=== PATIENT | female | born 1960 | race Caucasian/White ===

== ENCOUNTER 2019-07-09 02:42 | Inpatient (IN) | payer BC ==
[2019-07-09] VITALS (19 sets, daily range): BP systolic 90–115; BP diastolic 70–93; Ht 165.1 cm; Wt 53.5 kg
[~2019-07-09] VITALS: Ht 165.1 cm; Wt 53.5 kg
[2019-07-09] MEDS ORDERED: ZOLOFT50 MG PO (02:52)
[2019-07-09] MEDS ORDERED: VASOTEC20 MG PO (02:52)
[2019-07-09] MEDS ORDERED: ZOLOFT25 MG PO (02:52)
[2019-07-09] MEDS ORDERED: SYNTHROID50 MCG PO (02:53)
[2019-07-09 03:22] LABS: BASOPHILS 0.1 % (0-2); EOSINOPHILS 0.1 % (0-7); HEMOGLOBIN 11.7 g/dL (12-16); IMMATURE GRANULOCYTES 0.2 % (0-5); LYMPHOCYTES 15.7 % (15-50); MCH 34.3 pg (26.0-34.0); MCHC 33.4 g/dL (31.0-37.0); MCV 102.6 fL (80.0-100.0); MEAN PLATELET VOLUME 9.7 fL (7.4-10.4); MONOCYTES 11.9 % (2-11); PLATELET COUNT 67 10x3/uL (130-400); RBC 3.41 10x6/uL (4.00-5.40); RDW 12.1 % (11.5-14.5); WBC 8.7 10x3/uL (4.8-10.8)
[2019-07-09 03:35] LABS: APPEARANCE CLEAR (CLEAR); BILIRUBIN NEGATIVE (NEGATIVE); COLOR YELLOW (YELLOW); GLUCOSE 100 mg/dL (NEGATIVE); KETONE SMALL mg/dL (NEGATIVE); NITRITE NEGATIVE (NEGATIVE); PROTEIN NEGATIVE (NEGATIVE); SPECIFIC GRAVITY 1.015 (1.005-1.020); UROBILINOGEN NORMAL (NORMAL)
[2019-07-09 03:38] LABS: BACTERIA FEW /hpf (NEGATIVE); EPITHELIAL CELLS 0-5 /hpf (0-5); RED CELLS - URINE 0-5 /hpf (0-5); WHITE CELLS - URINE 0-5 /hpf (NEGATIVE)
[2019-07-09 03:48] LABS: APTT 29.2 SECONDS (22.8-39.4); INR 1.19 (0.85-1.17); PROTIME 14.6 SECONDS (11.6-15.0)
[2019-07-09 03:50] LABS: UDS - AMPHET NEGATIVE QUAL (NEGATIVE); UDS - BARB NEGATIVE QUAL (NEGATIVE); UDS - BENZO NEGATIVE QUAL (NEGATIVE); UDS - COCAINE NEGATIVE QUAL (NEGATIVE); UDS - OPIATE NEGATIVE QUAL (NEGATIVE); UDS - PCP NEGATIVE QUAL (NEGATIVE); UDS - THC NEGATIVE QUAL (NEGATIVE)
[2019-07-09 04:01] LABS: CALC OSMOLALITY 272 mosm/kg (275-300); CALCIUM 8.6 mg/dL (8.5-10.1); CARBON DIOXIDE 24.7 mmol/L (21.0-32.0); CHLORIDE - SERUM 99 mmol/L (98-107); CREATININE - SERUM 0.9 mg/dL (0.6-1.3); GLUCOSE 90 mg/dL (74-106); POTASSIUM - SERUM 3.7 mmol/L (3.5-5.1); SODIUM 136 mmol/L (136-145); UREA NITROGEN 15 mg/dL (7-18); eGFR NON AFRICAN AMERICAN 69 mL/min (90-120)
[2019-07-09 04:22] LABS: ALBUMIN 3.4 g/dL (3.4-5.0); ALKALINE PHOSPHATASE 180 U/L (46-116); ALT (SGPT) 60 U/L (10-68); BILIRUBIN - TOTAL 1.25 mg/dL (0.2-1.3); CKMB 16.9 U/L (0.0-3.6); CREATINE KINASE 583 UL (21-215); MAGNESIUM - SERUM 1.6 mg/dL (1.8-2.4); PROTEIN - SERUM 7.8 g/dL (6.4-8.2)
--- NOTE | 2019-07-09 04:42 | NUR ---
PT RECEIVED FROM ER. CAMEJO AT BEDSIDE. VSS WILL CONTINUE TO MONITOR
--- NOTE | 2019-07-09 07:00 | NUR ---
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
--- NOTE | 2019-07-09 09:15 | NUR ---
KAREN MACHADO APN HERE FOR EVAL, ECHO ORDERED
[2019-07-09 09:39] LABS: CKMB 13.1 U/L (0.0-3.6); CREATINE KINASE 541 UL (21-215)
[2019-07-09 09:45] LABS: TROPONIN-I 3.667 ng/mL (0.000-0.060)
--- NOTE | 2019-07-09 09:57 | NUR ---
TC IN UNIT FOR PENDING ECHO
--- NOTE | 2019-07-09 11:00 | NUR ---
REASSESSMENT COMPLETED, RESTING WITH NO SIGNS OF DISTRESS, VSS, DENIES PAIN, ASSESSMENT COMPLETED PER FLOWSHEET, SELF REPOSITIONS, AWAITING TO SEE DR HER FOR POC, CALL LIGHT IN REACH, NO OTHER NEEDS AT THIS TIME
--- NOTE | 2019-07-09 12:00 | NUR ---
AND SON AT BEDSIDE, STATUS UPDATED, AWATING TO SPEAK WITH MD
--- NOTE | 2019-07-09 13:10 | NUR ---
DR LONG AT BEDSIDE, COUNSELED WITH FAMILY RE: POC
--- NOTE | 2019-07-09 15:00 | NUR ---
RESTING WITH NO SIGNS OF DOSTRESS, VSS, DENIES PAIN, HUNGRY AND WANTS TO EAT, DISCUSSED NPO ORDER AND PC TO DR LONG TO CLARIFY DIET ORDER, NEW ORDER GIVEN FOR REG DIET
--- NOTE | 2019-07-09 16:00 | NUR ---
CALLED TO ROOM, CLEAR LIQUIDS TO BEDSIDE, SPOKE WITH PATIENT RE: HER DRINKING PATTERN, STATES SHE DRINKS 3 OUNCES A DAY, SON AT BEDSIDE AND EXPLAINED THAT HIS FATHER WAS GIVING HIS MOM 3 OUNCES A DAY TO HELP HER TO QUIT DRINKING, BUT HE FEELS LIKE SHE WAS GETTING LIQUOR FROM SOMEONE ELSE, SHE DOES ADMIT TO DRINKING THE 3 OZ ON MOST DAYS
[2019-07-09 16:29] LABS: CKMB 9.4 U/L (0.0-3.6); CREATINE KINASE 450 UL (21-215)
[2019-07-09 16:38] LABS: TROPONIN-I 2.251 ng/mL (0.000-0.060)
--- NOTE | 2019-07-09 16:45 | NUR ---
CALLED TO ROOM, NEEDS TO URINATE, OOB TO BSC WITH ASSIST, UNABLE TO VOID BACK TO BED WITH ASSIST, REPOSITIONED WITH MINIMAL ASSIST
--- NOTE | 2019-07-09 18:36 | NUR ---
AGITATED, CRAWLING OOB, SHAKING, NOT EASILY DIRECTED, 1M ATIVAN GIVEN PER ORDER
--- NOTE | 2019-07-09 19:00 | NUR ---
REPORT RECEIVED. PT DISORIENTED TO PLACE, TIME, AND SITUATION. PT CONTINUES TO ATTEMPT TO GET OUT OF BED, ATTEMPTED TO REORIENT MULTIPLE TIMES. PT IN SINUS TACH IN THE 160'S WHEN MOVING AROUND. SCD'S IN PLACE, PIV IN LT HAND INFUSING, SEE IV FLOWSHEET. ASSESSMENT COMPLETE, SEE IV FLOWSHEET. WILL CONTINUE TO MONITOR.
--- NOTE | 2019-07-09 20:52 | NUR ---
PT PULLED OUT PIV IN LEFT HAND. NEW PIV STARTED ON LEFT FOREARM 20G. PREVIOUS CATH TIP INTACT.
--- NOTE | 2019-07-09 21:00 | NUR ---
PT DISORIENTED TO TIME, PLACE, SITUATION. REORIENTED NEEDED. PT CONTINUES TO ATTEMPT TO GET OUT OF BED, SAFETY RAILS IN PLACE. TREMORS STILL PRESENT, BUT LESS SEVERE PREVIOUSLY NOTED. WILL CONTINUE TO MONITOR.
[2019-07-09 22:01] LABS: CKMB 6.9 U/L (0.0-3.6); CREATINE KINASE 462 UL (21-215)
[2019-07-09 22:05] LABS: TROPONIN-I 2.301 ng/mL (0.000-0.060)
--- NOTE | 2019-07-09 23:00 | NUR ---
PT RESTING IN BED, DISORIENTED TO TIME, PLACE, SITUATION. REORIENTED NEEDED. PT PULLING AT LINES AND ATTEMPTING TO GET OUT OF BED. SAFETY RAILS IN PLACE X2. WILL CONTINUE TO MONITOR.
[2019-07-10] VITALS (24 sets, daily range): BP systolic 104–156; BP diastolic 67–113
--- NOTE | 2019-07-10 01:00 | NUR ---
PT RESTLESS, DISORIENTED TO TIME, PLACE, SITUATION. REORIENTED NEEDED. WILL CONTINUE TO MONITOR.
--- NOTE | 2019-07-10 03:00 | NUR ---
PT RESTING IN BED, DISORIENTED TO TIME, PLACE, SITUATION. REORIENTED NEEDED.
[2019-07-10 04:41] LABS: BASOPHILS 0.1 % (0-2); EOSINOPHILS 0.1 % (0-7); HEMATOCRIT 32.8 % (36.0-48.0); HEMOGLOBIN 10.8 g/dL (12-16); IMMATURE GRANULOCYTES 0.1 % (0-5); MCH 34.5 pg (26.0-34.0); MCHC 32.9 g/dL (31.0-37.0); MEAN PLATELET VOLUME 11.4 fL (7.4-10.4); MONOCYTES 13.9 % (2-11); NEUTROPHILS 73.8 % (40-80); PLATELET COUNT 68 10x3/uL (130-400); RBC 3.13 10x6/uL (4.00-5.40); RDW 12.2 % (11.5-14.5); WBC 7.3 10x3/uL (4.8-10.8)
[2019-07-10 04:52] LABS: MCV 104.8 fL (80.0-100.0)
--- NOTE | 2019-07-10 05:00 | NUR ---
PT RESTLESS, FACE FLUSH. PT DISORIENTED TO TIME, PLACE, SITUATION. REORIENTED NEEDED. WILL CONTINUE TO MONITOR.
[2019-07-10 05:09] LABS: ALBUMIN 2.8 g/dL (3.4-5.0); ALKALINE PHOSPHATASE 136 U/L (46-116); ALT (SGPT) 49 U/L (10-68); BILIRUBIN - TOTAL 1.35 mg/dL (0.2-1.3); CALC OSMOLALITY 269 mosm/kg (275-300); CALCIUM 7.6 mg/dL (8.5-10.1); CARBON DIOXIDE 24.1 mmol/L (21.0-32.0); CHLORIDE - SERUM 103 mmol/L (98-107); CREATININE - SERUM 0.8 mg/dL (0.6-1.3); GLUCOSE 95 mg/dL (74-106); POTASSIUM - SERUM 3.5 mmol/L (3.5-5.1); PROTEIN - SERUM 6.9 g/dL (6.4-8.2); SODIUM 135 mmol/L (136-145); UREA NITROGEN 12 mg/dL (7-18); eGFR NON AFRICAN AMERICAN 78 mL/min (90-120)
[2019-07-10 05:49] LABS: PLATELET ESTIMATE DECREASED
--- NOTE | 2019-07-10 07:00 | NUR ---
REC'D REPORT AND RESUMED CARE, AWAKE AND CONFUSED, TACHYPNIC, OTHER VSS, ASSESSMENT COMPLETED PER FLOWSHEET, RESTLESS AND AGITATED
--- NOTE | 2019-07-10 08:30 | NUR ---
DIE MECHANIC FOR DR LONG HERE FOR EVAL, NEW ORDERS GIVEN, PC TO PHARMACY RE: MVI BAG
--- NOTE | 2019-07-10 09:00 | NUR ---
MORNING MEDS GIVEN PER SEP FLOWSHEET
--- NOTE | 2019-07-10 11:00 | NUR ---
NO ACUTE CHANGE FROM PREVIOUS, SEE ASSESSMENT FLOWSHEET, WILL CONTINUE TO MONITOR
--- NOTE | 2019-07-10 11:09 | NUR ---
ABG COMPLETED BY RT
--- NOTE | 2019-07-10 12:00 | NUR ---
SON AND AT BEDSIDE, STATUS UPDATED, VOICES NO NEEDS AT THIS TIME
--- NOTE | 2019-07-10 15:00 | NUR ---
LEGS HANGING OVER SIDE OF BED, REPOSITIONED UP AND TO BACK WITH HEELS FLOATED, NO OTHER ACUTE CHANGE FROM PREVIOUS
--- NOTE | 2019-07-10 15:43 | MORECARE ---
CASE MANAGEMENT DISCHARGE SUMMARY PATIENT: JOCELYNN MONTERO UNIT: [id number] ADM DATE: 07/09/19 AGE: 58 : 64 SEX: F ROOM/BED: D.2308 AUTHOR: HARISH KELLOGG PHYSICIAN: REFERRING PHYSICIAN: SHAWN BRANDON MD DATE OF SERVICE: 07/10/19 Discharge Plan Patient Name: JOCELYNN MONTERO Facility: [facility]:[place] : 1960 Planned Disposition: Anticipated Discharge Date: Discharge Date: Expected LOS: Initial Reviewer: [email or web address] Initial Review Date: 07/10/2019 Generated: 07/10/19 4:43 pm DCPIA - Discharge Planning Initial Assessment Updated by [email or web address]: Joselyn Guerra on 07/10/19 3:41 pm * Is the patient Alert and Oriented? No * How many steps to enter\exit or inside your home? * PCP DR. DE LA ROSA * Pharmacy [facility] * Preadmission Environment Home with Family * ADLs Independent * Equipment None * List name and contact numbers for known caregivers / representatives who currently or will assist patient after discharge: KAELYN MONTERO - SPOUSE- [phone] * Verbal permission to speak to the caregivers and representatives has been obtained from the patient. N/A * Community resources currently utilized None * Additional services required to return to the preadmission environment? No * Can the patient safely return to the preadmission environment? Yes * Has this patient been hospitalized within the prior 30 days at any hospital? No Patient Name: JOCELYNN MONTERO Page [phone] at 1543 All edits/amendments must be made on the electronic document DICTATION DATE: 07/10/19 154 DIRECTOR PEDIATRIC: JASS 07/10/191541 RPT#: [id number] DC DATE: STATUS: ADM IN [facility] [address] [place] [address] END OF REPORT
--- NOTE | 2019-07-10 16:19 | MORECARE ---
CASE MANAGEMENT DISCHARGE SUMMARY PATIENT: JOCELYNN MONTERO UNIT: [id number] ADM DATE: 07/09/19 AGE: 58 : 64 SEX: F ROOM/BED: D.2309 AUTHOR: BESSDOC PHYSICIAN: REFERRING PHYSICIAN: SHAWN BRANDON MD DATE OF SERVICE: 07/10/19 Discharge Plan Patient Name: JOCELYNN MONTERO Facility: [facility]:[place] : 1960 Planned Disposition: Anticipated Discharge Date: Discharge Date: Expected LOS: Initial Reviewer: [email or web address] Initial Review Date: 07/10/2019 Generated: 07/10/19 5:19 pm Comments DCP- Discharge Planning Updated by [email or web address]: Joselyn Guerra on 07/10/19 3:[address] Patient Name: JOCELYNN MONTERO Admission Status: ER Accout number: [id number] Admission Date: 07-09-2019 : 1960 Admission Diagnosis: Attending: SHAWN BRANDON Current LOS: 1 Anticipated DC Date: Planned Disposition: Primary Insurance: [employer] [facility] Discharge Planning Comments: CM met with patient's Kaelyn to complete initial dc planning assessment. CM educated patient on the CM role and verbal consent given by patient to complete assessment. Patient lives at home with her where she is independent with her care. At discharge patient plans to return home and feels this is a safe discharge. CM discussed availability of home health, rehab services, and medical equipment. Her family will drive her home upon discharge. Patient denied known discharge needs at this time. CM will continue to follow and will assist as needed with dc plans/needs. Edge Baster: Joselyn Guerra DCPIA - Discharge Planning Initial Assessment Updated by [email or web address]: Joselyn Guerra on 07/10/19 3:41 pm * Is the patient Alert and Oriented? No * How many steps to enter\exit or inside your home? * PCP DR. DE LA ROSA * Pharmacy [facility] * Preadmission Environment Home with Family * ADLs Independent * Equipment None * List name and contact numbers for known caregivers / representatives who currently or will assist patient after discharge: KAELYN MONTERO - SPOUSE- [phone] * Verbal permission to speak to the caregivers and representatives has been obtained from the patient. N/A * Community resources currently utilized None * Additional services required to return to the preadmission environment? No * Can the patient safely return to the preadmission environment? Yes * Has this patient been hospitalized within the prior 30 days at any hospital? No Last DP export: 07/10/19 2:43 Patient Name: JOCELYNN MONTERO Page [id number] at 1619 All edits/amendments must be made on the electronic document DICTATION DATE: 07/10/191617 WATERPROOFER: JASS 07/10/191617 RPT#: [id number] DC DATE: STATUS: ADM IN [facility] [address] [place] [address] END OF REPORT
--- NOTE | 2019-07-10 17:00 | NUR ---
DINNER TRAY TO BEDSIDE, ASSISTED WITH SET UP AND EATING, HAVING TROUBLE WITH DEXTERITY AND TREMORS
--- NOTE | 2019-07-10 19:00 | NUR ---
REPORT RECEIVED, PT DISORIENTED TO TIME, PLACE, SITUATION. REORIENTED NEEDED. PT AGITATED AND RESTLESS, FACE FLUSHED, ACCESSORY MUSCLES USED, TACHYPNIC. ASSESSMENT COMPLETE, SEE FLOWSHEET. PIV IN LEFT FOREARM INFUSING, SEE FLOWSHEET. WILL CONTINUE TO MONITOR.
--- NOTE | 2019-07-10 21:00 | NUR ---
PT ATTEMPTING TO GET OUT OF BED, PULLING AT LINES AND O2 TUBING. REORIENTED NEEDED.
--- NOTE | 2019-07-10 23:00 | NUR ---
PT CONTINUES TO PULL AT LINES, TACHYPNIC WITH ACCESSORY MUSCLES USED. REORIENTED NEEDED.
[2019-07-11] VITALS (24 sets, daily range): BP systolic 90–134; BP diastolic 43–99
--- NOTE | 2019-07-11 01:00 | NUR ---
PT DISORIENTED TO TIME, PLACE, AND SITUATION. RESTING IN BED AT THIS TIME. WILL CONTINUE TO MONITOR.
--- NOTE | 2019-07-11 03:00 | NUR ---
PT RESTING IN BED, NO CHANGES FROM PREVIOUS STATUS. WILL CONTINUE TO MONITOR.
--- NOTE | 2019-07-11 05:00 | NUR ---
PT DISORIENTED TO TIME AND SITUATION. PT MORE ALERT THAN PREVIOUSLY NOTED, HOWEVER IS STILL CONFUSED. NO ACUTE DISTRESS NOTED AT THIS TIME, WILL CONTINUE TO MONITOR.
[2019-07-11 05:24] LABS: BASOPHILS 0 % (0-2); EOSINOPHILS 0 % (0-7); HEMATOCRIT 36.3 % (36.0-48.0); HEMOGLOBIN 11.6 g/dL (12-16); IMMATURE GRANULOCYTES 0.3 % (0-5); LYMPHOCYTES 4.1 % (15-50); MCH 33.9 pg (26.0-34.0); MCV 106.1 fL (80.0-100.0); MEAN PLATELET VOLUME 11.4 fL (7.4-10.4); MONOCYTES 12.2 % (2-11); NEUTROPHILS 83.4 % (40-80); RBC 3.42 10x6/uL (4.00-5.40); RDW 12.1 % (11.5-14.5)
[2019-07-11 05:28] LABS: PLATELET COUNT 107 10x3/uL (130-400); WBC 10.8 10x3/uL (4.8-10.8)
[2019-07-11 05:38] LABS: CALC OSMOLALITY 275 mosm/kg (275-300); CALCIUM 7.9 mg/dL (8.5-10.1); CHLORIDE - SERUM 104 mmol/L (98-107); CREATININE - SERUM 0.8 mg/dL (0.6-1.3); GLUCOSE 151 mg/dL (74-106); POTASSIUM - SERUM 3.9 mmol/L (3.5-5.1); SODIUM 136 mmol/L (136-145); UREA NITROGEN 15 mg/dL (7-18); eGFR NON AFRICAN AMERICAN 78 mL/min (90-120)
--- NOTE | 2019-07-11 07:00 | NUR ---
PATIENT RECIEVED FROM PREVIOUS NURSE RESTING WITH HOB ELEVATED. RESPIRATIONS 22 SHALLOW WITH RHONCHI NOTED. 02 SAT 88-90 WITH 6L NC. PATIENT CHANGED TO HIGH FLOW CANULA BY RESPIRATORY WITH SAT INCREASING TO 94-96%. PATINET DENIES SORENESS TO CHEST. IV PATIENT TO LEFT FA NS @125 SECURED WITH COBAN TO AVOID PATIENT FROM PULLING OUT. PATIENT ASSISTED TO BSC WITH MODERATE WEAKNESS NOTED. CL IN REACH
--- NOTE | 2019-07-11 08:00 | NUR ---
PATIENT TOLERATING REGULAR DIET WELL, ALERT REORIENTED TO PLACE WITH PATIENT VOICING UNDERSTANDING. CL IN REACH
--- NOTE | 2019-07-11 09:00 | NUR ---
PATIENT RESTING WITH NO DISTRESS
--- NOTE | 2019-07-11 10:00 | NUR ---
PATIENT ASSISTED WITH BEDPAN. AT SIDE. PATIENT TOLERATED PO MEDS WELL.
--- NOTE | 2019-07-11 11:00 | NUR ---
PATIENT RESTING WITH AT SIDE. ENCOURAGED SLOWER DEEPER BREATHS THROUGH NOSE. PATIENT VOICED UNDERSTANDING.
--- NOTE | 2019-07-11 12:05 | NUR ---
PATIENTS REPIRATIONS SAT 93%. ATIVAN 1MG GIVEN FOR RESTLESSNESS.
--- NOTE | 2019-07-11 14:00 | NUR ---
PATIENT RESTING WITH EYES CLOSED, RESPIRATIONS 33 AND SHALLOW. 02 SAT 97%, CL IN REACH
--- NOTE | 2019-07-11 15:00 | NUR ---
PATIENT RESTING QUIETLY WITH HOB ELEVATED. REGULAR AND NONLABORED AT THIS TIME. CL IN REACH
--- NOTE | 2019-07-11 17:00 | NUR ---
PATIENT TOLERATED MECHANICAL SOFT DIET WELL. AT BEDSIDE.
[2019-07-12] VITALS (24 sets, daily range): BP systolic 90–137; BP diastolic 57–100
[2019-07-12 04:00] LABS: BASOPHILS 0 % (0-2); EOSINOPHILS 0.4 % (0-7); HEMATOCRIT 34.5 % (36.0-48.0); HEMOGLOBIN 11.3 g/dL (12-16); IMMATURE GRANULOCYTES 0.3 % (0-5); LYMPHOCYTES 9.4 % (15-50); MCH 34.1 pg (26.0-34.0); MCHC 32.8 g/dL (31.0-37.0); MCV 104.2 fL (80.0-100.0); MEAN PLATELET VOLUME 10.9 fL (7.4-10.4); MONOCYTES 14.7 % (2-11); NEUTROPHILS 75.2 % (40-80); RBC 3.31 10x6/uL (4.00-5.40)
[2019-07-12 04:05] LABS: PLATELET COUNT 132 10x3/uL (130-400); WBC 7.8 10x3/uL (4.8-10.8)
[2019-07-12 04:12] LABS: CALC OSMOLALITY 276 mosm/kg (275-300); CALCIUM 8.2 mg/dL (8.5-10.1); CARBON DIOXIDE 20.2 mmol/L (21.0-32.0); CHLORIDE - SERUM 103 mmol/L (98-107); CREATININE - SERUM 0.8 mg/dL (0.6-1.3); GLUCOSE 129 mg/dL (74-106); POTASSIUM - SERUM 3.5 mmol/L (3.5-5.1); SODIUM 136 mmol/L (136-145); eGFR NON AFRICAN AMERICAN 78 mL/min (90-120)
[2019-07-12 04:15] LABS: UREA NITROGEN 20 mg/dL (7-18)
--- NOTE | 2019-07-12 07:40 | NUR ---
Nutrition follow-up: Diet: regular mechanical soft with thin liquids per speech PO intake ~33% average x last 3 meals Labs reviewed Wt: 117# Will provide food choices and honor food preferences within diet restrictions. RDN following.
--- NOTE | 2019-07-12 08:18 | NUR ---
SHIFT ASSESSMENT COMPLETE. PT SLEEPING. ROUSES TO STIMULI. VSS.
--- NOTE | 2019-07-12 10:38 | NUR ---
PT ASSISTED BY NURSE AND PHYSICAL THERAPIST UP TO BEDSIDE COMMODE. VERY WEAK, UNSTEADY. MORNING MEDICATIONS HAVE BEEN GIVEN. NOW EATING BREAKFAST WITH ASSIST FROM .
--- NOTE | 2019-07-12 13:52 | NUR ---
DR JOHNSON BY AND SPOKE WITH PT AND . ALL QUESTIONS ANSWERED.
--- NOTE | 2019-07-12 15:15 | NUR ---
REASSESSMENT COMPLETE PER FLOW SHEET. VSS. NO NEW CHANGES. PT RESTING COMFORTABLY WILL CONTINUE TO MONITOR
--- NOTE | 2019-07-12 17:20 | NUR ---
FAMILY AT BEDSIDE GIVEN UPDATE. NO NEW CHANGES WILL CONTINUE TO MONITOR
[2019-07-13] VITALS (14 sets, daily range): BP systolic 92–122; BP diastolic 45–87
[2019-07-13 04:25] LABS: BASOPHILS 0.3 % (0-2); EOSINOPHILS 3.1 % (0-7); HEMATOCRIT 35.4 % (36.0-48.0); HEMOGLOBIN 11.7 g/dL (12-16); IMMATURE GRANULOCYTES 0.3 % (0-5); LYMPHOCYTES 20.1 % (15-50); MCH 34.2 pg (26.0-34.0); MCHC 33.1 g/dL (31.0-37.0); MCV 103.5 fL (80.0-100.0); MEAN PLATELET VOLUME 10.5 fL (7.4-10.4); NEUTROPHILS 55.2 % (40-80); RBC 3.42 10x6/uL (4.00-5.40); RDW 12.1 % (11.5-14.5); WBC 6.8 10x3/uL (4.8-10.8)
[2019-07-13 04:30] LABS: PLATELET COUNT 187 10x3/uL (130-400)
[2019-07-13 04:43] LABS: CALC OSMOLALITY 279 mosm/kg (275-300); CALCIUM 8.2 mg/dL (8.5-10.1); CARBON DIOXIDE 24.9 mmol/L (21.0-32.0); CHLORIDE - SERUM 105 mmol/L (98-107); CREATININE - SERUM 0.7 mg/dL (0.6-1.3); GLUCOSE 97 mg/dL (74-106); POTASSIUM - SERUM 3.2 mmol/L (3.5-5.1); SODIUM 139 mmol/L (136-145); UREA NITROGEN 18 mg/dL (7-18); eGFR NON AFRICAN AMERICAN > 90 mL/min (90-120)
[2019-07-13 05:13] LABS: LYMPHOCYTES 15 % (15-50); MONOCYTES 23 % (2-11); NEUTROPHILS 62 % (40-80); PLATELET ESTIMATE NORMAL
--- NOTE | 2019-07-13 07:00 | NUR ---
BEDSIDE REPORT RECEIVED. SHIFT ASSESSMENT COMPLETED PER FLOWSHEET, SEE FLOWSHEET FOR INFORMATION. VSS. PT DENIES ANY ACUTE NEEDS OR DISTRESS AT THIS TIME. WILL CONT TO MONITOR.
--- NOTE | 2019-07-13 09:00 | NUR ---
ASSISSTED PT TO BSC X2. WILL CONT TO MONITOR.
--- NOTE | 2019-07-13 11:00 | NUR ---
REASSESSMENT COMPLETED PER FLOWSHEET, SEE FLOWSHEET FOR INFORMATION. FAMILY AT BEDSIDE. WILL CONT TO MONITOR.
--- NOTE | 2019-07-13 12:41 | NUR ---
NEW ORDERS RECEIVED. FAMILY AT BEDSIDE. WILL CONT TO MONITOR. ASSISSTED PT TO BSC X1.
--- NOTE | 2019-07-13 13:00 | NUR ---
REPORT CALLED TO [facility]BI IN MED SURG FOR ROOM 2204. CALLED X3, CALLED SSON X2, NO ANSWER. WILL CONT TO MONITOR.
[2019-07-13 14:10] LABS: % SATURATION 25 % (15-55); IRON 33 ug/dl (35-150); TOTAL IRON BIND CAPACITY 129 ug/dl (260-445); UNSAT IRON BIND CAPACITY 96 ug/dl (150-375)
--- NOTE | 2019-07-13 14:17 | NUR ---
RCVED PT VIA WHEELCHAIR AND HOSPITAL STAFF. ALERT AND ORIENTED WITH NO S/S OF DISTRESS AT THIS TIME. IV LOCATED TO LEFT FOREARM, CURRENTLY SL. FAMILY AT THE BEDSIDE, WILL CONT TO MONITOR.
--- NOTE | 2019-07-13 19:25 | NUR ---
PT LYING IN BED RESTING WITH EYES CLOSED, AWAKENS TO VERBAL STIMULI. AOX4, DENIES NEEDS AT THIS TIME, CL IN REACH. WILL CTM
[2019-07-14] VITALS: BP 115/80
[2019-07-14 04:00] VITALS: BP 122/90
[2019-07-14 05:13] LABS: HEMATOCRIT 36.9 % (36.0-48.0); MCH 33.7 pg (26.0-34.0); MCHC 32.5 g/dL (31.0-37.0); MCV 103.7 fL (80.0-100.0); MEAN PLATELET VOLUME 10.9 fL (7.4-10.4); RBC 3.56 10x6/uL (4.00-5.40); RDW 12.2 % (11.5-14.5); WBC 7.6 10x3/uL (4.8-10.8)
[2019-07-14 05:23] LABS: PLATELET COUNT 225 10x3/uL (130-400)
[2019-07-14 05:42] LABS: CALC OSMOLALITY 280 mosm/kg (275-300); CALCIUM 8.8 mg/dL (8.5-10.1); CARBON DIOXIDE 26.6 mmol/L (21.0-32.0); CHLORIDE - SERUM 106 mmol/L (98-107); CREATININE - SERUM 0.8 mg/dL (0.6-1.3); GLUCOSE 90 mg/dL (74-106); POTASSIUM - SERUM 3.7 mmol/L (3.5-5.1); SODIUM 140 mmol/L (136-145); UREA NITROGEN 18 mg/dL (7-18); eGFR NON AFRICAN AMERICAN 78 mL/min (90-120)
[2019-07-14 05:55] LABS: BASOPHILS 1 % (0-2); EOSINOPHILS 4 % (0-7); LYMPHOCYTES 24 % (15-50); MONOCYTES 20 % (2-11); NEUTROPHILS 51 % (40-80); PLATELET ESTIMATE NORMAL
[2019-07-14 08:11] VITALS: BP 124/92
--- NOTE | 2019-07-14 11:12 | NUR ---
PATIENT RECEVED THIS AM RESTING IN BED, RESPIRATIONS REGULAR AND NONLABORED. AMBULATED IN HALLWAYS WITH PT AND TO RESTROOM WITH USE OF WALKER. TOLERATING DIET WELL, NO C/O PAIN. AT SIDE.
--- NOTE | 2019-07-14 11:22 | NUR ---
UNABLE TO FLUSH IV TO LEFT FOREARM, REMOVED WITH CATH TIP INTACT, NO REDNESS OR EDEMA. NEW IV PLACED TO RIGHT FOREARM X 1 STICK 22G, PATIENT TOLERATED WELL.
[2019-07-14 12:37] VITALS: BP 118/86
[2019-07-14 16:33] VITALS: BP 115/82
--- NOTE | 2019-07-14 19:30 | NUR ---
PT SITTING UP IN BED WITHOUT DISTRESS, AOX4. IV RIGHT FA SL, FLUSHES EASILY. DENIES NEEDS AT THIS TIME. CL IN REACH, WILL CTM
[2019-07-14 20:35] VITALS: BP 114/77
[2019-07-15 01:20] VITALS: BP 125/88
[2019-07-15 05:21] VITALS: BP 114/84
[2019-07-15 05:23] LABS: BASOPHILS 0.5 % (0-2); EOSINOPHILS 1.9 % (0-7); HEMATOCRIT 38.8 % (36.0-48.0); HEMOGLOBIN 12.9 g/dL (12-16); IMMATURE GRANULOCYTES 0.7 % (0-5); LYMPHOCYTES 17.8 % (15-50); MCH 34.1 pg (26.0-34.0); MCHC 33.2 g/dL (31.0-37.0); MCV 102.6 fL (80.0-100.0); MEAN PLATELET VOLUME 10.7 fL (7.4-10.4); MONOCYTES 19.4 % (2-11); NEUTROPHILS 59.7 % (40-80); PLATELET COUNT 264 10x3/uL (130-400); RBC 3.78 10x6/uL (4.00-5.40); RDW 12.5 % (11.5-14.5); WBC 8.4 10x3/uL (4.8-10.8)
[2019-07-15 05:30] LABS: ANION GAP 11.7 mmol/L (8-16); CALCIUM 8.9 mg/dL (8.5-10.1); CARBON DIOXIDE 29.4 mmol/L (21.0-32.0); CREATININE - SERUM 0.9 mg/dL (0.6-1.3)
[2019-07-15 05:36] LABS: POTASSIUM - SERUM 3.1 mmol/L (3.5-5.1)
[2019-07-15 08:25] VITALS: BP 120/80
--- NOTE | 2019-07-15 11:05 | NUR ---
Nutrition follow-up: Diet: Regular mechanical soft with thin liquids PO intake ~75% average at meals Labs reviewed RDN following.
[2019-07-15] MEDS ORDERED: VITAMIN B-1100 M1 PO (12:55)
[2019-07-15] MEDS ORDERED: FOLIC ACID1 MG PO (12:55)
[2019-07-15] MEDS ORDERED: COREG 3.1253.125 MG PO (12:55)
[2019-07-15] MEDS ORDERED: MULTI-DAY VITAM1 TAB PO (12:55)
[2019-07-15] MEDS ORDERED: LEVAQUIN750 MG PO (12:56)
[2019-07-15] MEDS ORDERED: LIBRIUM5 MG PO (12:57)
[2019-07-15 14:20] VITALS: BP 96/66
[2019-07-15] MEDS ORDERED: LIBRIUM 10 MG C10 MG PO (14:22)
--- NOTE | 2019-07-15 14:45 | MORECARE ---
CASE MANAGEMENT DISCHARGE SUMMARY PATIENT: JOCELYNN MONTERO UNIT: [id number] ADM DATE: 07/09/19 AGE: 59 : 64 SEX: F ROOM/BED: D.2204 AUTHOR: HARISH KELLOGG PHYSICIAN: REFERRING PHYSICIAN: SHAWN BRANDON MD DATE OF SERVICE: 07/15/19 Discharge Plan Patient Name: JOCELYNN MONTERO Facility: [facility]:[place] : 1960 Planned Disposition: Home or Self Care Anticipated Discharge Date: Discharge Date: Expected LOS: Initial Reviewer: [email or web address] Initial Review Date: 07/10/2019 Generated: 07/15/19 3:45 pm Comments DCP- Discharge Planning Updated by [email or web address]: Carole Mantilla on 07/15/19 1:[address] PATIENT DISCHARGING HOME TODAY, PATIENT DID NOT NEED ANYTHING AT [facility]. HER SON WILL BE HER BENCH ASSEMBLER HOME AND SHE LIVES WITH HER SPOUSE. SHE STATED SHE HAS NEIGHBORS AND FRIENDS WHO WILL CHECK ON HER WHEN HER IS AT WORK DCP- Discharge Planning Updated by [email or web address]: Joselyn Guerra on 07/10/19 3:[address] Patient Name: JOCELYNN MONTERO Admission Status: ER Accout number: [id number] Admission Date: 07-09-2019 : 1960 Admission Diagnosis: Attending: SHAWN BRANDON Current LOS: 1 Anticipated DC Date: Planned Disposition: Primary Insurance: [employer] [facility] Discharge Planning Comments: CM met with patient's Kaelyn to complete initial dc planning assessment. CM educated patient on the CM role and verbal consent given by patient to complete assessment. Patient lives at home with her where she is independent with her care. At discharge patient plans to return home and feels this is a safe discharge. CM discussed availability of home health, rehab services, and medical equipment. Her family will drive her home upon discharge. Patient denied known discharge needs at this time. CM will continue to follow and will assist as needed with dc plans/needs. Talent Development Coordinator: Joselyn Guerra DCPIA - Discharge Planning Initial Assessment Updated by [email or web address]: Joselyn Guerra on 07/10/19 3:41 pm * Is the patient Alert and Oriented? No * How many steps to enter\exit or inside your home? * PCP DR. DE LA ROSA * [facility]acy [facility] * Preadmission Environment Home with Family * ADLs Independent * Equipment None * List name and contact numbers for known caregivers / representatives who currently or will assist patient after discharge: KAELYN MONTERO - SPOUSE- [phone] * Verbal permission to speak to the caregivers and representatives has been obtained from the patient. N/A * Community resources currently utilized None * Additional services required to return to the preadmission environment? No * Can the patient safely return to the preadmission environment? Yes * Has this patient been hospitalized within the prior 30 days at any hospital? No Last DP export: 07/10/19 3:19 Patient Name: JOCELYNN MONTERO Page [id number] at 1445 All edits/amendments must be made on the electronic document DICTATION DATE: 07/15/191444 LINE SUPERVISOR: JASS 07/15/19 1445 RPT#: [id number] DC DATE: STATUS: ADM IN [facility] [address] [place] [address] END OF REPORT
--- NOTE | 2019-07-15 15:21 | NUR ---
IV THERAPY REMOVED FROM RIGHT WRIST. DISCHARGE INSTRUCTIONS GIVEN. PATIENT VERBALIZED UNDERSTANDING. WILL NOTIFY ME WHEN RIDE ARRIVES
--- NOTE | 2019-07-16 11:29 | MORECARE ---
CASE MANAGEMENT DISCHARGE SUMMARY PATIENT: JOCELYNN MONTERO UNIT: [id number] ADM DATE: 07/09/19 AGE: 59 : 64 SEX: F ROOM/BED: D.2204 AUTHOR: HARISH KELLOGG PHYSICIAN: REFERRING PHYSICIAN: SHAWN BRANDON MD DATE OF SERVICE: 07/16/19 Discharge Plan Patient Name: JOCELYNN MONTERO Facility: [facility]:[place] : 1960 Planned Disposition: Home or Self Care Anticipated Discharge Date: Discharge Date: 07/15/2019 Expected LOS: Initial Reviewer: [email or web address] Initial Review Date: 07/10/2019 Generated: 07/16/19 12:28 pm Comments DCP- Discharge Planning Updated by [email or web address]: Carole Mantilla on 07/15/19 1:[address] PATIENT DISCHARGING HOME TODAY, PATIENT DID NOT NEED ANYTHING AT [facility]. HER SON WILL BE HER STILL PUMP OPERATOR HOME AND SHE LIVES WITH HER SPOUSE. SHE STATED SHE HAS NEIGHBORS AND FRIENDS WHO WILL CHECK ON HER WHEN HER IS AT WORK DCP- Discharge Planning Updated by [email or web address]: Joselyn Guerra on 07/10/19 3:[address] Patient Name: JOCELYNN MONTERO Admission Status: ER Accout number: [id number] Admission Date: 07-09-2019 : 1960 Admission Diagnosis: Attending: SHAWN BRANDON Current LOS: 1 Anticipated DC Date: Planned Disposition: Primary Insurance: [employer] FEP Discharge Planning Comments: CM met with patient's Kaelyn to complete initial dc planning assessment. CM educated patient on the CM role and verbal consent given by patient to complete assessment. Patient lives at home with her where she is independent with her care. At discharge patient plans to return home and feels this is a safe discharge. CM discussed availability of home health, rehab services, and medical equipment. Her family will drive her home upon discharge. Patient denied known discharge needs at this time. CM will continue to follow and will assist as needed with dc plans/needs. Molded Rubber Goods Cutter: Joselyn Guerra DCPIA - Discharge Planning Initial Assessment Updated by [email or web address]: Joselyn Guerra on 07/10/19 3:41 pm * Is the patient Alert and Oriented? No * How many steps to enter\exit or inside your home? * PCP DR. DE LA ROSA * [facility]acy [facility] * Preadmission Environment Home with Family * ADLs Independent * Equipment None * List name and contact numbers for known caregivers / representatives who currently or will assist patient after discharge: KAELYN MONTERO - SPOUSE- [phone] * Verbal permission to speak to the caregivers and representatives has been obtained from the patient. N/A * Community resources currently utilized None * Additional services required to return to the preadmission environment? No * Can the patient safely return to the preadmission environment? Yes * Has this patient been hospitalized within the prior 30 days at any hospital? No Last DP export: 07/15/19 1:45 Patient Name: JOCELYNN MONTERO Page [phone] at 1129 All edits/amendments must be made on the electronic document DICTATION DATE: 07/16/191127 MACHINIST MATE: JASS 07/16/191127 RPT#: [id number] DC DATE:07/15/19 STATUS: DIS IN [facility] [address] [place] [address] END OF REPORT
== END 2019-07-15 15:43 | disposition home or self-care (01) | DRG 896 ==
LOC: D.ER 02:42 → D.ICU 02:55 → D.MS 07-13 13:30
PROVIDERS: Family Medicine; ADMIT Internal Medicine Nephrology; ATTEND Internal Medicine Nephrology
DX: F10.231 Alcohol dependence with withdrawal delirium (principal); J69.0 Pneumonitis due to inhalation of food and vomit; G92 Toxic encephalopathy; I50.23 Acute on chronic systolic (congestive) heart failure; J96.01 Acute respiratory failure with hypoxia; G40.89 Other seizures; I42.6 Alcoholic cardiomyopathy; E87.1 Hypo-osmolality and hyponatremia; J90 Pleural effusion, not elsewhere classified; D53.9 Nutritional anemia, unspecified; E83.42 Hypomagnesemia; E03.9 Hypothyroidism, unspecified; F32.9 Major depressive disorder, single episode, unspecified; I11.0 Hypertensive heart disease with heart failure

== ENCOUNTER → 2019-08-02 07:45 | Outpatient (CLI) | payer BC ==
[2019-07-09 09:24] VITALS: BMI 19.6
[~2019-08-02 07:45] MED LIST: COREG 3.1253.125 MG PO; FOLIC ACID1 MG PO; LEVAQUIN750 MG PO; LIBRIUM 10 MG C10 MG PO; LIBRIUM5 MG PO; MULTI-DAY VITAM1 TAB PO; SYNTHROID50 MCG PO; VASOTEC20 MG PO; VITAMIN B-1100 M1 PO; ZOLOFT25 MG PO; ZOLOFT50 MG PO
[2019-08-02 08:25] LABS: HEMATOCRIT 39.7 % (36.0-48.0); MCH 33.1 pg (26.0-34.0); MCHC 32.7 g/dL (31.0-37.0); MEAN PLATELET VOLUME 10.4 fL (7.4-10.4); PLATELET COUNT 242 10x3/uL (130-400); RBC 3.93 10x6/uL (4.00-5.40); RDW 11.9 % (11.5-14.5); WBC 8.9 10x3/uL (4.8-10.8)
[2019-08-02 08:38] LABS: APTT 31.7 SECONDS (22.8-39.4); INR 1.06 (0.85-1.17); PROTIME 13.8 SECONDS (11.6-15.0)
[2019-08-02 08:48] LABS: % SATURATION 16 % (15-55); IRON 45 ug/dl (35-150); TOTAL IRON BIND CAPACITY 272 ug/dl (260-445); UNSAT IRON BIND CAPACITY 227 ug/dl (150-375)
[2019-08-02 09:07] LABS: ALBUMIN 3.4 g/dL (3.4-5.0); ALKALINE PHOSPHATASE 130 U/L (46-116); ALT (SGPT) 41 U/L (10-68); BILIRUBIN - INDIRECT 0.21 mg/dL (0.00-1.00); BILIRUBIN - TOTAL 0.41 mg/dL (0.2-1.3); CALC OSMOLALITY 283 mosm/kg (275-300); CALCIUM 9.4 mg/dL (8.5-10.1); CHLORIDE - SERUM 104 mmol/L (98-107); CHOL - HDL RATIO 4.4 ratio (2.3-4.1); CHOLESTEROL, TOTAL 185 mg/dL (0-200); CREATININE - SERUM 0.9 mg/dL (0.6-1.3); FERRITIN 107 ng/mL (3-244); GAMMA GT 367 U/L (5-85); GLUCOSE 96 mg/dL (74-106); HDL CHOLESTEROL 42 mg/dL (32-96); LDL CHOLESTEROL 126 mg/dL (0-100); POTASSIUM - SERUM 3.8 mmol/L (3.5-5.1); PROTEIN - SERUM 8.7 g/dL (6.4-8.2); SODIUM 142 mmol/L (136-145); TRIGLYCERIDE 86 mg/dL (30-200); UREA NITROGEN 14 mg/dL (7-18); eGFR NON AFRICAN AMERICAN 68 mL/min (90-120)
[2019-08-02 09:23] LABS: EOSINOPHILS 2 % (0-7); LYMPHOCYTES 23 % (15-50); MONOCYTES 4 % (2-11); NEUTROPHILS 71 % (40-80); PLATELET ESTIMATE NORMAL
[2019-08-03 10:09] LABS: HEPATITIS C ANTIBODY 0.1 S/CO RAT (0.0-0.9)
[2019-08-03 11:09] LABS: HAPTOGLOBIN 183 mg/dL (33-346)
[2019-08-03 13:09] LABS: ALPHA FETOPROTEIN -(TUMOR MRK) 3.8 ng/mL (0.0-8.3)
[2019-08-05 10:09] LABS: ANA REFLEX - DIRECT Negative (Negative)
[2019-08-05 12:09] LABS: MITOCHONDRIAL ANTIBODY <20.0 Units (0.0-20.0); SMOOTH MUSCLE ABS (ACTIN) 14 Units (0-19)
== END | disposition home or self-care (01) ==
LOC: D.US 07:45
PROVIDERS: ATTEND Internal Medicine Gastroenterology
DX: R74.8 Abnormal levels of other serum enzymes (principal)

== ENCOUNTER → 2020-03-02 09:54 | Outpatient (CLI) | payer BC ==
[2020-03-02 11:08] LABS: BASOPHILS 0.2 % (0-2); HEMATOCRIT 43.8 % (36.0-48.0); HEMOGLOBIN 14.4 g/dL (12-16); IMMATURE GRANULOCYTES 0.2 % (0-5); MCH 31.4 pg (26.0-34.0); MCHC 32.9 g/dL (31.0-37.0); MCV 95.6 fL (80.0-100.0); MEAN PLATELET VOLUME 9.6 fL (7.4-10.4); MONOCYTES 10.6 % (2-11); PLATELET COUNT 174 10x3/uL (130-400); RBC 4.58 10x6/uL (4.00-5.40); RDW 13.1 % (11.5-14.5); WBC 6.1 10x3/uL (4.8-10.8)
[2020-03-02 11:33] LABS: APTT 27.6 SECONDS (22.8-39.4); INR 0.92 (0.85-1.17); PROTIME 12.4 SECONDS (11.6-15.0)
[2020-03-02 11:47] LABS: ANION GAP 11.8 mmol/L (8-16); BILIRUBIN - TOTAL 0.44 mg/dL (0.2-1.3); CALCIUM 9.3 mg/dL (8.5-10.1); CREATININE - SERUM 0.9 mg/dL (0.6-1.3); POTASSIUM - SERUM 3.8 mmol/L (3.5-5.1); PROTEIN - SERUM 8.2 g/dL (6.4-8.2)
== END | disposition home or self-care (01) ==
LOC: D.LAB 09:45 → D.US 10:00
PROVIDERS: ATTEND Internal Medicine Gastroenterology
DX: K70.30 Alcoholic cirrhosis of liver without ascites (principal)